=== PATIENT | female | born 1960 | race African-American/Black ===

== ENCOUNTER → 2016-08-25 | Outpatient (CLI) | payer OTHER ==
[2016-08-25 18:05] LABS: ALANINE AMINOTRANSFERASE 39 U/L (9-52); ALBUMIN 4.2 g/dL (3.5-5.0); ALKALINE PHOSPHATASE 86 U/L (38-126); ANION GAP 10 (5-19); ASPARTATE AMINO TRANSFERASE 27 U/L (14-36); BILIRUBIN,TOTAL 0.5 mg/dL (0.2-1.3); BLOOD UREA NITROGEN 11 mg/dL (7-20); CALCIUM 10.6 mg/dL (8.4-10.2); CARBON DIOXIDE 28 mmol/L (22-30); CHLORIDE 103 mmol/L (98-107); CHOLESTEROL 114.66 mg/dL (0-200); CREATININE RESULT 0.58 mg/dL (0.52-1.25); Direct HDL 36 mg/dL (>40); GLUCOSE 90 mg/dL (75-110); POTASSIUM 4.5 mmol/L (3.6-5.0); SODIUM 141.4 mmol/L (137-145); TOTAL PROTEIN 6.5 g/dL (6.3-8.2); TRIGLYCERIDES 114 mg/dL (<150)
[2016-08-25 18:16] LABS: DIRECT LDL 54 mg/dL (<100)
== END ==
LOC: OD 16:14
PROVIDERS: ATTEND Internal Medicine Cardiovascular Disease
DX: Z79.899 Other long term (current) drug therapy (principal)
CPT/HCPCS: 36415; 80048; 80061; 80076; 82306; 83036; 84443

== ENCOUNTER → 2017-02-21 | Outpatient (CLI) | payer OTHER ==
[2017-02-21 18:43] LABS: HEMATOCRIT 37.9 % (36.0-47.0); HEMOGLOBIN 12.6 g/dL (12.0-15.5); HGB HCT DIFFERENCE -0.1; MEAN CORPUSCULAR HEMOGLOBIN 29.8 pg (27.0-33.4); MEAN CORPUSCULAR HGB CONC 33.4 g/dL (32.0-36.0); MEAN CORPUSCULAR VOLUME 89 fl (80-97); RED BLOOD COUNT 4.25 10^6/uL (3.72-5.28); RED CELL DISTRIBUTION WIDTH 13.6 % (11.5-14.0); WHITE BLOOD COUNT 5.7 10^3/uL (4.0-10.5)
[2017-02-21 18:51] LABS: PARTIAL THROMBOPLASTIN TIME 28.1 SEC (23.5-35.8); PROTHROMBIN TIME 12.9 SEC (11.4-15.4)
[2017-02-21 18:59] LABS: ALANINE AMINOTRANSFERASE 36 U/L (9-52); ALBUMIN 4.6 g/dL (3.5-5.0); ALKALINE PHOSPHATASE 112 U/L (38-126); ANION GAP 11 (5-19); ASPARTATE AMINO TRANSFERASE 30 U/L (14-36); BILIRUBIN,DIRECT 0.3 mg/dL (0.0-0.4); BILIRUBIN,TOTAL 0.4 mg/dL (0.2-1.3); BLOOD UREA NITROGEN 15 mg/dL (7-20); CALCIUM 11.1 mg/dL (8.4-10.2); CARBON DIOXIDE 31 mmol/L (22-30); CHLORIDE 101 mmol/L (98-107); CHOLESTEROL 103.35 mg/dL (0-200); Direct HDL 36 mg/dL (>40); GLUCOSE 86 mg/dL (75-110); POTASSIUM 5.1 mmol/L (3.6-5.0); SODIUM 143.3 mmol/L (137-145); TOTAL PROTEIN 6.6 g/dL (6.3-8.2); TRIGLYCERIDES 67 mg/dL (<150)
[2017-02-21 19:10] LABS: DIRECT LDL 53 mg/dL (<100)
== END ==
LOC: OD 16:40
PROVIDERS: ATTEND Internal Medicine Cardiovascular Disease
DX: E55.9 Vitamin D deficiency, unspecified (principal); R07.9 Chest pain, unspecified; Z79.01 Long term (current) use of anticoagulants; Z01.810 Encounter for preprocedural cardiovascular examination
CPT/HCPCS: 36415; 80048; 80061; 80076; 82306; 85027; 85610; 85730

== ENCOUNTER → 2017-04-17 | Outpatient (CLI) | payer OTHER | LOC: OD 11:31 | PROVIDERS: ATTEND Internal Medicine Cardiovascular Disease | DX: R07.9 Chest pain, unspecified (principal); Z53.8 Procedure and treatment not carried out for other reasons ==

== ENCOUNTER 2017-07-09 15:41 | Emergency (ER) | payer OTHER ==
[2017-07-09 15:50] VITALS: BP 117/61
--- NOTE | 2017-07-09 16:13 | ER Document Report ---
ED Medical Screen (RME) - General Chief Complaint: Arm Injury Stated Complaint: FALL/LEFT ARM PAIN Time Seen by Provider: 07/09/17 16:07 TRAVEL OUTSIDE OF THE [place] IN LAST 30 DAYS: No - HPI Notes: 07/09/17 16:07 Patient is a 57-year-old female who presents ED complaining of left arm pain status post injury yesterday. Patient states that she was walking on her porch when she fell and landed her elbow inside of the pot she was carrying. Patient states that she has pain to her lower arm, forearm, and wrist. Patient states that she does have a bruise to her lower arm. 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 She has no numbness or tingling associated. She did is not on any blood thinners. She denies any drug allergies. Patient states that she did hit her head off the ground, but denies any loss of consciousness nausea/vomiting. Patient states that her arm caught most of her fall and her body just followed including her head. Patient states that she currently has no headache and no other concerns or complaints aside from her arm. She is eating and drinking without difficulties. She is urinating normally and having normal bowel movements. Denies any headache, fever, LOC, neck pain, changes in vision/speech/mentation/hearing, URI, sore throat, chest pain, palpitations, syncope, cough, shortness of breath, wheeze, dyspnea, abdominal pain, nausea/vomiting/diarrhea, urinary retention, dysuria, hematuria , loss of control of bowel or bladder, numbness/tingling, saddle anesthesia, muscle paralysis/weakness, or rash. I have treated and performed a rapid initial assessment of this patient. A comprehensive ED assessment and evaluation of the patient, analysis of test results and completion of medical decision making process will be conducted by additional ED providers. - Related Data Allergies/Adverse Reactions: No Known Allergies Allergy (Unverified 07/09/17 15:42) Past Medical History - Past Medical History Cardiac Medical History: Reports: Hx Hypertension - SINCE 5 YRS GI Medical History: Reports: Hx Gastroesophageal Reflux Disease - SINCE 4 YRS Past Surgical History: Reports: Hx Abdominal Surgery - GALLBLADDER, Hx Hysterectomy, Hx Mastectomy. Denies: Hx Adenoidectomy Physical Exam - Vital signs Vitals: Temp Pulse Resp BP Pulse Ox 98.9 F 70 16 117/61 98 07/09/17 15:48 07/09/17 15:48 07/09/17 15:48 07/09/17 15:48 07/09/17 15:48 - Notes Notes: PHYSICAL EXAMINATION: GENERAL: Well-appearing, well-nourished and in no acute distress. A&Ox4. Answers questions appropriately. HEAD: Atraumatic, normocephalic. Non-tender. No lopez sign EYES: Pupils equal round and reactive to light, extraocular movements intact, sclera anicteric, conjunctiva are normal. No raccoon eyes/entrapment. No nystagmus. ENT: Nares patent and without discharge. oropharynx clear without exudates. No tonsilar hypertrophy or erythema. Moist mucous membranes. NECK: Normal range of motion, supple without lymphadenopathy. No rigidity. No midline tenderness. Spurling negative. NEXUS negative. LUNGS: Breath sounds clear to auscultation bilaterally and equal. No wheezes rales or rhonchi. HEART: Regular rate and rhythm without murmurs, rubs, gallops. Musculoskeletal: Ext b/l: FROM to passive/active. Strength 5+/5. No deficits noted. + ecchymosis to the distal posterior left humerus. + tenderness to palp of the distal humerus, mid forearm, and wrist. No hand tenderness. N/V intact distal. Extremities: Peripheral pulses 2+. Capillary refill less than 2 seconds. NEUROLOGICAL: NIH 0. GCS 15. MMSE intact. Cranial nerves grossly intact. Normal speech, normal gait. Normal sensory, motor exams. Reflexes 2+ b/l. MARÍA' s negative. Pronator drift negative. Heel/elam, finger/nose wnl. PSYCH: Normal mood, normal affect. SKIN: Warm, Dry, normal turgor, no rashes or lesions noted. Course - Vital Signs Vital signs: Temp Pulse Resp BP Pulse Ox 98.9 F 70 16 117/61 98 07/09/17 15:48 07/09/17 15:48 07/09/17 15:48 07/09/17 15:48 07/09/17 15:48
--- NOTE | 2017-07-09 16:40 | RADIOLOGY REPORT (SQ) ---
EXAM DESCRIPTION: WRIST LEFT 3 VIEWS COMPLETED DATE/TIME: 07/09/2017 4:32 pm REASON FOR STUDY: left elbow, forearm, wrist pain COMPARISON: None. NUMBER OF VIEWS: Three views. TECHNIQUE: AP, lateral, and oblique radiographic images acquired of the left wrist. LIMITATIONS: None. FINDINGS: MINERALIZATION: Normal. BONES: No acute fracture or dislocation. No worrisome bone lesions. Normal alignment. No significant osteophytes. JOINTS: There are degenerative changes in the 1st carpal metacarpal joint. There are degenerative ch anges in the radiocarpal joint. SOFT TISSUES: No swelling. No calcifications. OTHER: No other significant finding. IMPRESSION: Degenerative changes. No acute findings. TECHNICAL DOCUMENTATION: JOB ID: [id number] [employer]- All Rights Reserved
--- NOTE | 2017-07-09 16:42 | RADIOLOGY REPORT (SQ) ---
EXAM DESCRIPTION: ELBOW LEFT OVER 2 VIEWS COMPLETED DATE/TIME: 07/09/2017 4:32 pm REASON FOR STUDY: left elbow, forearm, wrist pain COMPARISON: None. NUMBER OF VIEWS: Four views. TECHNIQUE: AP, lateral, and both oblique radiographic images acquired of the left elbow. LIMITATIONS: None. FINDINGS: MINERALIZATION: Normal. BONES: There is a mildly displaced fracture of the radial head. JOINT: There is a small joint effusion. SOFT TISSUES: No soft tissue swelling. No foreign body. OTHER: No other significant finding. IMPRESSION: Radial head fracture with associated joint effusion. TECHNICAL DOCUMENTATION: JOB ID: [id number] [employer]- All Rights Reserved
--- NOTE | 2017-07-09 17:20 | ER Document Report ---
ED Extremity Problem, Upper - General Chief Complaint: Arm Injury Stated Complaint: FALL/LEFT ARM PAIN Time Seen by Provider: 07/09/17 16:07 Mode of Arrival: Ambulatory Information source: Patient TRAVEL OUTSIDE OF THE [place] IN LAST 30 DAYS: No - HPI Patient complains to provider of: Injury, Left, Arm Onset: Yesterday Recent injury: Yes Where: Home, Outdoors Quality of pain: Achy Severity of pain: Moderate Notes: Patient arrives with complaints of left arm pain after falling yesterday. She states that she was observed her deck carrying a cooking pot when she tripped and fell and her left elbow went into the pocket. She now complains of left elbow and left wrist pain. She states that she hit her head, but denies any loss of consciousness. She denies any headache, blurred vision, numbness tingling or weakness. She is not on blood thinning medications. She denies any midline neck or back pain, no chest pain or shortness of breath, no abdominal pain. She denies any fevers. No redness. She denies any other injuries or complaints at this time. She does complain of some mild generalized stiffness. - Related Data Allergies/Adverse Reactions: No Known Allergies Allergy (Unverified 07/09/17 15:42) Past Medical History - Social History Smoking Status: Unknown if Ever Smoked Family History: Reviewed & Not Pertinent - Past Medical History Cardiac Medical History: Reports: Hx Hypertension - SINCE 5 YRS GI Medical History: Reports: Hx Gastroesophageal Reflux Disease - SINCE 4 YRS Past Surgical History: Reports: Hx Abdominal Surgery - GALLBLADDER, Hx Hysterectomy, Hx Mastectomy. Denies: Hx Adenoidectomy Review of Systems - Review of Systems -: Yes All other systems reviewed and negative Physical Exam - Vital signs Vitals: Temp Pulse Resp BP Pulse Ox 98.9 F 70 16 117/61 98 07/09/17 15:48 07/09/17 15:48 07/09/17 15:48 07/09/17 15:48 07/09/17 15:48 - Notes Notes: GENERAL: alert, cooperative, nontoxic, no distress. HEAD: normocephalic, atraumatic EYES: conjunctiva pink without discharge, no external redness or swelling. PERRL , EOM'S INTACT EARS: no external swelling, no external redness. No hemotympanum EM NOSE: atraumatic, no external swelling. No bleeding MOUTH/THROAT: mucous membranes moist and pink, posterior pharynx without erythema, swelling, exudate. No trismus or drooling. NECK: soft, supple, full range of motion, no meningismus. No midline tenderness step-offs or crepitus to palpation of the cervical spine. CHEST: no distress, lungs clear and equal throughout. No wheezing, rales, rhonchi. CARDIAC: regular rate and rhythm, no murmur, normal capillary refill, normal pulses. No peripheral edema noted. BACK: full range of motion, no CVA tenderness. No midline tenderness step-offs or crepitus to palpation of the thoracic or lumbar spine. EXTREMITIES: Tenderness to palpation of the left elbow and distal radius. No snuffbox tenderness noted. No tenderness to palpation of the shoulder or the hand. Normal pulse and sensation is well cap refill distally. Limited range of motion of the elbow secondary to pain. Compartments are soft. No redness. Full range of motion of the wrist. NEURO: alert and oriented x 3, no focal deficits, full range of motion of all extremities. Cranial nerves II through XII are grossly intact. Normal sensation bilaterally. Normal strength bilaterally. PYSCH: appropriate mood, affect. Patient is cooperative. SKIN: pink, warm, dry, no rash. Course - Re-evaluation Re-evalutation: 07/09/17 17:17 The patient is nontoxic appearing with stable vitals. The patient fell and injured her left arm yesterday. She states that she hit her head, no loss of consciousness, no blood thinners, no headache now, normal neuro exam at this time. She does not require any head CT at this time. X-rays of the left elbow and wrist show a radial head fracture. She is neurovascularly intact with no signs of compartment syndrome. No signs of infection. Patient will be placed in a posterior splint and sling with instructions to follow-up with her orthopedist at the next available appointment. She already takes Percocet on a daily basis for chronic pain and she was instructed to continue taking this as needed. She is instructed to rest, ice, elevate the arm as well. She was also instructed to follow-up sooner if she develops any increasing pain, fever, numbness, tingling, weakness, any further concerns. The patient's emergency department workup and current diagnosis were explained to the patient and or family. Follow-up instructions were provided. Medications if prescribed were discussed. Instructions for when to return to the emergency department including specific worrisome symptoms were discussed with the patient and/or family. - Vital Signs Vital signs: Temp Pulse Resp BP Pulse Ox 98.9 F 70 16 117/61 98 07/09/17 15:48 07/09/17 15:48 07/09/17 15:48 07/09/17 15:48 07/09/17 15:48 - Diagnostic Test Radiology reviewed: Image reviewed, Reports reviewed - Wrist x-ray with no acute abnormality. Left elbow with radial head fracture. Procedures - Immobilization Left arm Pre-Proc Neuro Vasc Exam: Normal Immobilizer type: Long arm posterior, Sling Performed by: PCT Post-Proc Neuro Vasc Exam: Normal Alignment checked and good: Yes Discharge - Discharge Clinical Impression: Left radial head fracture Qualifiers: Encounter type: initial encounter Fracture type: closed Fracture alignment: nondisplaced Qualified Code(s): S52.125A - Nondisplaced fracture of head of left radius, initial encounter for closed fracture Condition: Stable Disposition: HOME, SELF-CARE Instructions: Radial Head Fracture ([facility]), Splint Precautions ([facility]) Additional Instructions: Wear splint and use sling until you follow-up with your orthopedist. Call and make an appointment with your orthopedist at the next available appointment. Rest, ice, elevate your arm. Take your normal pain medication as needed for pain. Follow-up sooner for increased pain, fever, numbness, tingling, weakness , any further concerns. Forms: Smoking Cessation Education Referrals: CLAUS GRIFFIN MD [Primary Care Provider] - Follow up as needed TRACE AGUILAR DO [ACTIVE STAFF] - Follow up as needed
== END 2017-07-09 18:00 | disposition home or self-care (01) ==
LOC: ER 15:41
DX: S52.125A Nondisplaced fracture of head of left radius, initial encounter for closed fracture (principal); W19.XXXA Unspecified fall, initial encounter; Y92.009 Unspecified place in unspecified non-institutional (private) residence as the place of occurrence of the external cause; M25.522 Pain in left elbow; M25.532 Pain in left wrist; I10 Essential (primary) hypertension; G89.29 Other chronic pain; Z79.891 Long term (current) use of opiate analgesic
CPT/HCPCS: 99283

== ENCOUNTER 2017-08-04 01:44 | Inpatient (IN) | payer OTHER ==
[2017-08-04] MEDS ORDERED: IPRATROPIUM/ALBUTEROL 0.5-2.5 MG/3 ML AMPUL NEB ONE ×2 (01:51→02:54)
[2017-08-04] MEDS ORDERED: PREDNISONE 20 MG TABLET PO ONE (01:51)
[2017-08-04] MEDS ORDERED: ACETAMINOPHEN 325 MG TABLET PO ONE (01:51)
[2017-08-04] MEDS: ALBUTEROL SULFATE 0.083% NEB 2.5 MG/3 ML AMPUL NEB SCH ×2 (01:56→01:58)
--- NOTE | 2017-08-04 02:55 | ER Document Report ---
ED General - General Chief Complaint: Cold Symptoms Stated Complaint: SICK Time Seen by Provider: 08/04/17 02:46 Notes: Patient is a 57-year-old female that comes emergency department for chief complaint of congestion, cough, fever, and worsening difficulty breathing since yesterday. She reports multiple sick contacts at home. She has not had the influenza vaccine. She does not smoke, she denies history of asthma or COPD. She denies chest pain, nausea or vomiting, abdominal pain. Past medical history of type 2 diabetes, hypertension, hyperlipidemia, and chronic back pain. TRAVEL OUTSIDE OF THE [place] IN LAST 30 DAYS: No - Related Data Allergies/Adverse Reactions: No Known Allergies Allergy (Unverified 07/09/17 15:42) Past Medical History - General Information source: Patient - Social History Smoking Status: Never Smoker Frequency of alcohol use: None Drug Abuse: None Lives with: Family Family History: Reviewed & Not Pertinent Patient has suicidal ideation: No Patient has homicidal ideation: No - Past Medical History Cardiac Medical History: Reports: Hx Hypertension - SINCE 5 YRS Renal/ Medical History: Denies: Hx Peritoneal Dialysis GI Medical History: Reports: Hx Gastroesophageal Reflux Disease - SINCE 4 YRS Past Surgical History: Reports: Hx Abdominal Surgery - GALLBLADDER, Hx Hysterectomy, Hx Mastectomy. Denies: Hx Adenoidectomy Review of Systems - Review of Systems Constitutional: See HPI EENT: No symptoms reported Cardiovascular: See HPI Respiratory: See HPI Gastrointestinal: No symptoms reported Genitourinary: No symptoms reported Female Genitourinary: No symptoms reported Musculoskeletal: No symptoms reported Skin: No symptoms reported Hematologic/Lymphatic: No symptoms reported Neurological/Psychological: No symptoms reported Physical Exam - Vital signs Vitals: Temp Pulse Resp BP Pulse Ox 101.9 F H 77 18 119/63 91 L 08/04/17 01:48 08/04/17 01:48 08/04/17 01:48 08/04/17 01:48 08/04/17 01:48 Interpretation: Normal - General General appearance: Alert In distress: Mild - HEENT Head: Normocephalic, Atraumatic Eyes: Normal Pupils: PERRL - Respiratory Respiratory status: Respiratory distress, Labored, Tachypnea Chest status: Nontender Breath sounds: Decreased air movement, Rhonchi, Wheezing Chest palpation: Normal - Cardiovascular Rhythm: Regular. No: Tachycardia Heart sounds: Normal auscultation, S1 appreciated, S2 appreciated Murmur: No - Abdominal Inspection: Normal Distension: No distension Bowel sounds: Normal Tenderness: Nontender. No: Tender, Guarding Organomegaly: No organomegaly - Back Back: Normal, Nontender. No: Tender - Extremities General upper extremity: Normal inspection, Nontender, Normal color, Normal ROM , Normal temperature General lower extremity: Normal inspection, Nontender, Normal color, Normal ROM , Normal temperature, Normal weight bearing. No: Edema - Neurological Neuro grossly intact: Yes Cognition: Normal Orientation: AAOx4 Austin Coma Scale Eye Opening: Spontaneous Austin Coma Scale Verbal: Oriented Austin Coma Scale Motor: Obeys Commands Negin Coma Scale Total: 15 Speech: Normal Motor strength normal: LUE, RUE, LLE, RLE Sensory: Normal - Psychological Associated symptoms: Normal affect, Normal mood - Skin Skin Temperature: Hot Skin Moisture: Dry Skin Color: Flushed Course - Re-evaluation Re-evalutation: Patient is in mild respiratory distress, has tachypnea, wheezing, loud rhonchi throughout all lung palmer. She is hypoxic on room air into the 80s, placed on 4 L nasal cannula, given multiple treatments, has received prednisone but also given Solu-Medrol, giving magnesium, duo nebs. Patient will be reassessed closely. Febrile treatment given. Patient difficult to obtain good access, I did use ultrasound to guide long IV 20-gauge placement in the right AC. Patient asking for medication for cough, she was given [place] for this, this did help. After multiple treatments, medications patient's wheezing resolved but she still has loud rhonchi and hypoxia. On 4 L nasal cannula she is at 93%, this quickly drops without oxygen. CBC unremarkable, chemistry unremarkable generally, cardiac enzymes negative, influenza is negative. Given Rocephin, and azithromycin. Patient's clinical presentation is consistent with pneumonia. Possibly viral pneumonia. Venous blood gas fortunately is normal. Patient with no smoking, asthma, COPD history. 08/04/17 07:[address] Mccarty, internal medicine, patient will be admitted to telemetry full admission. Recommends CAT scan of the chest. I discussed with patient, after discussion we will perform full CTA of the chest to fully evaluate hypoxia. - Vital Signs Vital signs: Temp Pulse Resp BP Pulse Ox 99.4 F 77 16 135/72 H 92 08/04/17 05:00 08/04/17 01:48 08/04/17 06:37 08/04/17 06:37 08/04/17 06:37 - Laboratory Result Diagrams: 08/04/17 03:26 08/04/17 03:26 Laboratory results interpreted by me: 08/04/17 08/04/17 03:26 03:26 RDW 14.6 H Sodium 135.0 L Chloride 96 L Glucose 186 H Direct Bilirubin 0.5 H AST 67 H Creatine Kinase 139 H Discharge - Discharge Clinical Impression: Shortness of breath, Hypoxia Fever Qualifiers: Fever type: unspecified Qualified Code(s): R50.9 - Fever, unspecified Condition: Fair Disposition: ADMITTED INPATIENT Admitting Provider: Hospitalist Unit Admitted: Telemetry Referrals: CLAUS GRIFFIN MD [Primary Care Provider] - Follow up as needed
[2017-08-04 03:43] LABS: ABSOLUTE LYMPHOCYTES (AUTO) 0.8 10^3/uL (0.5-4.7); ABSOLUTE MONOCYTES (AUTO) 0.5 10^3/uL (0.1-1.4); ABSOLUTE NEUT (AUTO) 4.1 10^3/uL (1.7-8.2); BASOPHILS % (AUTO) 0.9 % (0-2); EOSINOPHILS % (AUTO) 0.1 % (0-6); HEMATOCRIT 39.5 % (36.0-47.0); LYMPHOCYTES % (AUTO) 15.2 % (13-45); MEAN CORPUSCULAR HEMOGLOBIN 28.3 pg (27.0-33.4); MEAN CORPUSCULAR HGB CONC 32.9 g/dL (32.0-36.0); MEAN CORPUSCULAR VOLUME 86 fl (80-97); MONOCYTES % (AUTO) 8.8 % (3-13); PLATELET COUNT 179 10^3/uL (150-450); RED BLOOD COUNT 4.59 10^6/uL (3.72-5.28); RED CELL DISTRIBUTION WIDTH 14.6 % (11.5-14.0); TOTAL CELLS COUNTED % (AUTO) 100 %; WHITE BLOOD COUNT 5.4 10^3/uL (4.0-10.5)
--- NOTE | 2017-08-04 03:45 | RADIOLOGY REPORT (SQ) ---
EXAM DESCRIPTION: CHEST SINGLE VIEW CLINICAL HISTORY: 57 years Female, fever, cough, hypoxia COMPARISON: None. NUMBER OF VIEWS/TECHNIQUE: 1/AP LIMITATIONS: None. FINDINGS: Moderate lung volume, small atelectasis or scar of the left lower lung field, normal cardiac silhouette, and and moderate bilateral shoulder osteoarthritis including large right inferior glenohumeral osteophytes IMPRESSION: No acute cardiopulmonary findings.
[2017-08-04 03:55] LABS: ALANINE AMINOTRANSFERASE 47 U/L (9-52); ALBUMIN 4.6 g/dL (3.5-5.0); ALKALINE PHOSPHATASE 121 U/L (38-126); ANION GAP 13 (5-19); ASPARTATE AMINO TRANSFERASE 67 U/L (14-36); BILIRUBIN,DIRECT 0.5 mg/dL (0.0-0.4); BILIRUBIN,TOTAL 0.7 mg/dL (0.2-1.3); BLOOD UREA NITROGEN 17 mg/dL (7-20); CALCIUM 9.1 mg/dL (8.4-10.2); CARBON DIOXIDE 26 mmol/L (22-30); CHLORIDE 96 mmol/L (98-107); CREATINE KINASE 139 U/L (30-135); GLUCOSE 186 mg/dL (75-110); POTASSIUM 4.2 mmol/L (3.6-5.0); TOTAL PROTEIN 7.4 g/dL (6.3-8.2)
[2017-08-04] MEDS ORDERED: HYDROCODONE/ACETAMINOPHEN 5-325 MG TABLET PO ONE ×2 (04:02→04:05)
[2017-08-04] MEDS ORDERED: ONDANSETRON HCL INJ/PF 4 MG/2 ML SDV IV ONE (04:02)
[2017-08-04] MEDS ORDERED: MAGNESIUM SULFATE/D5W 1 GM/100 ML RTUPB IV PRN (04:05)
[2017-08-04] MEDS ORDERED: METHYLPREDNISOLONE INJ 125 MG/2 ML SDV IV ONE (04:05)
[2017-08-04 04:15] LABS: A TYPE INFLUENZA AG NEGATIVE (NEGATIVE); B INFLUENZA AG NEGATIVE (NEGATIVE)
[2017-08-04 04:29] LABS: VENOUS BLOOD HCO3 25.4 mmol/L (20-32); VENOUS BLOOD PCO2 39.9 mmHg (35-63); VENOUS BLOOD PH 7.42 (7.30-7.42)
[2017-08-04] MEDS ORDERED: CEFTRIAXONE 1 GM/D5W RTU 1 GM/50 ML RTUPB IV ONE (04:50)
[2017-08-04] MEDS ORDERED: AZITHROMYCIN INJ 500 MG VIAL IV ONE (04:50)
[2017-08-04] MEDS ORDERED: CEFTRIAXONE INJ 1000 MG VIAL ONE (05:20)
[2017-08-04] MEDS ORDERED: MAGNESIUM SULFATE/D5W 1 GM/100 ML RTUPB IV ONE (05:31)
[2017-08-04] MEDS ORDERED: IPRATROPIUM/ALBUTEROL 0.5-2.5 MG/3 ML AMPUL NEB PRN (07:52)
[2017-08-04] MEDS: IPRATROPIUM/ALBUTEROL 0.5-2.5 MG/3 ML AMPUL NEB SCH ×3 (08:36→23:45)
--- NOTE | 2017-08-04 09:43 | RADIOLOGY REPORT (SQ) ---
EXAM DESCRIPTION: CTA CHEST COMPLETED DATE/TIME: 08/04/2017 9:31 am REASON FOR STUDY: hypoxia COMPARISON: 07/28/2009 TECHNIQUE: CT scan of the chest performed using helical scanning technique with dynamic intravenous contrast injection. Images reviewed with lung, soft tissue and bone windows. Reconstructed coronal and sagittal MPR images reviewed. Additional 3 dimensional post-processing performed to develop Maximal Intensity Projection images (DC P). All images stored on PACS. All CT scanners at this facility use dose modulation, iterative reconstruction, and/or weight based d osing when appropriate to reduce radiation dose to as low as reasonably achievable (ALARA). [facility]: Dose Right [facility]: CareDose [facility]: Dose Right [facility]: Teradose 4D [facility]: Secured Mail CONTRAST TYPE AND DOSE: contrast/concentration: Isovue 370.00 mg/ml; Total Contrast Delivered: 78.0 ml; Total Saline Delivered: 110.0 ml Contrast bolus adequate for pulmonary arteries and aorta. RENAL FUNCTION: GFR > 60. RADIATION DOSE: CT Rad equipment meets quality standard of care and radiation dose reduction techniq ues were employed. CTDIvol: 31.8 - 33.1 mGy. DLP: 1040 mGy-cm. . LIMITATIONS: None. FINDINGS: LUNGS AND PLEURA: Bilateral lower lobe consolidation compatible with pneumonia. Lungs oth erwise clear. No significant pleural effusion or pneumothorax. AORTA AND GREAT VESSELS: No aneurysm. Contrast bolus not optimized for the aorta. HEART: No pericardial effusion. No significant coronary artery calcifications. PULMONARY ARTERIES: No emboli visualized in the main pulmonary arteries or the segmental branches. HILAR AND MEDIASTINAL STRUCTURES: No identified masses or abnormal nodes. HARDWARE: None in the chest. UPPER ABDOMEN: No significant findings. Limited exam. THYROID AND OTHER SOFT TISSUES: No masses. No adenopathy. BONES: No acute or significant finding. 3D MIPS: Confirm above findings. OTHER: No other significant finding. IMPRESSION: BILATERAL LOWER LOBE PNEUMONIA. RECOMMEND FOLLOWUP RADIOGRAPHS 4 TO 6 WEEKS TO ENSURE R ESOLUTION. OTHERWISE UNREMARKABLE CTA CHEST WITHOUT PULMONARY EMBOLI. COMMENT: Quality ID # [id number]: Final reports with documentation of one or more dose reduction techniques (e.g., Automated exposure control, adjustment of the mA and/or kV according to patient size, use of iterative reconstruction technique) TECHNICAL DOCUMENTATION: JOB ID: [id number]- All Rights Reserved
[2017-08-04] MEDS ORDERED: CEFTRIAXONE 1 GM/D5W RTU 50 ML IV SCH (10:00)
--- NOTE | 2017-08-04 10:28 | PDOC H&P ---
History of Present Illness Admission Date/PCP: 08/04/17 08:30 CLAUS GRIFFIN MD Patient complains of: Cough, chest congestion and wheezing History of Present Illness: MARINO SAMAYOA is a 57 year old [place] female that comes to the emergency department for chief complaint of congestion, cough, fever, and worsening difficulty breathing since yesterday. She reports multiple sick contacts at home. She has not had the influenza vaccine. She does not smoke, she denies history of asthma or COPD. She has had fevers up to 101.5 at home. She has been taking Tylenol and nrmw-sid-hshperd Mucinex without improvement of her symptoms. She began wheezing yesterday afternoon and it became more progressive as the day went on. Her dyspnea is what prompted her trip to the emergency room. She denies chest pain, nausea or vomiting, abdominal pain. Past medical history of type 2 diabetes, hypertension, hyperlipidemia, and chronic back pain. Home medications reconciliation list is pending nursing and pharmacy verification. Past Medical History Cardiac Medical History: Reports: Hypertension - SINCE 5 YRS Pulmonary Medical History: Reports: None EENT Medical History: Reports: None Neurological Medical History: Reports: None Endocrine Medical History: Reports: None Renal/ Medical History: Reports: None Malignancy Medical History: Reports: None GI Medical History: Reports: Gastroesophageal Reflux Disease - SINCE 4 YRS Musculoskeltal Medical History: Reports: None Skin Medical History: Reports: None Psychiatric Medical History: Reports: None Traumatic Medical History: Reports: None Hematology: Reports: None Infectious Medical History: Reports: None Past Surgical History Past Surgical History: Reports: Hysterectomy, Mastectomy Denies: Adenoidectomy Social History Information Source: Patient Lives with: Family Smoking Status: Never Smoker Frequency of Alcohol Use: Rare Hx Recreational Drug Use: No Drugs: None - Advance Directive Surrogate healthcare decision maker:: is care surrogate decision maker should she become incapacitated Family History Family History: Hypertension, Malignancy Parental Family History Reviewed: Yes Children Family History Reviewed: Yes Sibling(s) Family History Reviewed.: Yes Medication/Allergy Allergies/Adverse Reactions: No Known Allergies Allergy (Unverified 07/09/17 15:42) Review of Systems Constitutional: PRESENT: chills, fatigue, fever(s) Eyes: ABSENT: visual disturbances Ears: ABSENT: hearing changes Nose, Mouth, and Throat: PRESENT: sore throat Cardiovascular: ABSENT: chest pain, dyspnea on exertion, edema, orthropnea, palpitations Respiratory: PRESENT: cough, dyspnea, sputum, other - Seen Gastrointestinal: ABSENT: abdominal pain, constipation, diarrhea, hematemesis, hematochezia, nausea, vomiting Genitourinary: ABSENT: dysuria, hematuria Musculoskeletal: ABSENT: joint swelling Integumentary: ABSENT: rash, wounds Neurological: ABSENT: abnormal gait, abnormal speech, confusion, dizziness, focal weakness, syncope Psychiatric: ABSENT: anxiety, depression, homidical ideation, suicidal ideation Endocrine: ABSENT: cold intolerance, heat intolerance, polydipsia, polyuria Hematologic/Lymphatic: ABSENT: easy bleeding, easy bruising Physical Exam Vital Signs: Temp Pulse Resp BP Pulse Ox 99.4 F 77 16 135/72 H 92 08/04/17 05:00 08/04/17 01:48 08/04/17 06:37 08/04/17 06:37 08/04/17 06:37 General appearance: PRESENT: no acute distress, obese, well-developed, well- nourished Head exam: PRESENT: atraumatic, normocephalic Eye exam: PRESENT: conjunctiva pink, EOMI, PERRLA. ABSENT: scleral icterus Ear exam: PRESENT: normal external ear exam Mouth exam: PRESENT: moist, tongue midline Neck exam: ABSENT: carotid bruit, JVD, lymphadenopathy, thyromegaly Respiratory exam: PRESENT: rhonchi, symmetrical, unlabored, wheezes Cardiovascular exam: PRESENT: RRR. ABSENT: diastolic murmur, rubs, systolic murmur Pulses: PRESENT: normal dorsalis pedis pul Vascular exam: PRESENT: normal capillary refill GI/Abdominal exam: PRESENT: normal bowel sounds, soft. ABSENT: distended, guarding, mass, organolmegaly, rebound, tenderness Rectal exam: PRESENT: deferred Extremities exam: PRESENT: full ROM. ABSENT: calf tenderness, clubbing, pedal edema Neurological exam: PRESENT: alert, awake, oriented to person, oriented to place , oriented to time, oriented to situation, CN II-XII grossly intact. ABSENT: motor sensory deficit Psychiatric exam: PRESENT: appropriate affect, normal mood. ABSENT: homicidal ideation, suicidal ideation Skin exam: PRESENT: dry, intact, warm. ABSENT: cyanosis, rash Results Impressions: Chest X-Ray 08/04/17 02:53 IMPRESSION: No acute cardiopulmonary findings. Chest/Abdomen CTA 08/04/17 07:38 IMPRESSION: BILATERAL LOWER LOBE PNEUMONIA. RECOMMEND FOLLOWUP RADIOGRAPHS 4 TO 6 WEEKS TO ENSURE RESOLUTION. OTHERWISE UNREMARKABLE CTA CHEST WITHOUT PULMONARY EMBOLI. Assessment & Plan - Diagnosis (1) Acute respiratory failure with hypoxemia Is this a current diagnosis for this admission?: Yes Plan: Supplmental oxygen keeping SPO2 greater than 90 CTA shows bilateral lower lobe pneumonia. Continue IV antibiotics pending cultures. Nebulizers and steroids (2) Community acquired pneumonia Qualifiers: Lung location: lower lobe of lung Is this a current diagnosis for this admission?: Yes Plan: Continue IV antibiotics, nebulizers and steroids. Get sputum culture for pathogen identification (3) Essential hypertension Is this a current diagnosis for this admission?: Yes Plan: Continue current medications she is normotensive (4) Diabetes mellitus type 2 in obese Is this a current diagnosis for this admission?: Yes Plan: Sliding scale insulin coverage for now until her home meds are verified. - Time Time Spent: 50 to 70 Minutes Critical Time spent with patient: 25-34 minutes Medications reviewed and adjusted accordingly: Yes
[2017-08-04] MEDS: ENOXAPARIN SODIUM INJ 40 MG/0.4 ML DISP.SYRIN SUBCUT SCH (10:32)
[2017-08-04 13:22] LABS: APPEARANCE,URINE CLEAR; BILIRUBIN,URINE NEGATIVE (NEGATIVE); COLOR,URINE STRAW; GLUCOSE, URINE >=500 mg/dL (NEGATIVE); KETONES,URINE TRACE mg/dL (NEGATIVE); LEUKOCYTE ESTERASE,URINE NEGATIVE (NEGATIVE); NITRITE,URINE NEGATIVE (NEGATIVE); PROTEIN,URINE NEGATIVE (NEGATIVE); URINE SPECIFIC GRAVITY 1.035; UROBILINOGEN,URINE NEGATIVE mg/dL (<2.0)
[2017-08-04] MEDS: ACETAMINOPHEN 325 MG TABLET PO PRN (14:36)
[2017-08-04] MEDS ORDERED: CYCLOBENZAPRINE HCL 10 MG TABLET PO PRN (15:05)
[2017-08-04] MEDS ORDERED: OXYCODONE HCL IR 5 MG TABLET PO PRN (15:06)
[2017-08-04] MEDS ORDERED: GLUCAGON,HUMAN RECOMB 1 MG INJ IM PRN (15:07)
[2017-08-04] MEDS ORDERED: DEXTROSE 40% GEL 15 GM TUBE PO PRN ×2 (15:07)
[2017-08-04] MEDS ORDERED: DEXTROSE 50%-WATER 25 GM/50 ML DISP.SYRIN IV PRN ×2 (15:07)
[2017-08-04] MEDS ORDERED: GUAIFENESIN/CODEINE PHOS 100-10 MG/ 5 ML UDC PO PRN (15:10)
[2017-08-04] MEDS ORDERED: NORMAL SALINE 1000 ML 1,000 ML IV PRN (17:22)
[2017-08-04] MEDS: GABAPENTIN 300 MG CAPSULE PO SCH (19:15)
[2017-08-04] MEDS ORDERED: GUAIFENESIN 600 MG TABLET.SA PO SCH (22:00)
[2017-08-04] MEDS: DULOXETINE HCL 30 MG CAPSULE.DR PO SCH (23:43)
[2017-08-04] MEDS: GUAIFENESIN 600 MG TABLET.SA PO SCH (23:43)
[2017-08-04] MEDS: METOPROLOL TARTRATE 50 MG TABLET PO SCH (23:44)
[2017-08-04] MEDS: METHYLPREDNISOLONE INJ 40 MG/1 ML SDV IV SCH (23:45)
[2017-08-04] MEDS: METFORMIN HCL 500 MG TABLET PO SCH (23:46)
[2017-08-05] MEDS: ACETAMINOPHEN 325 MG TABLET PO PRN (02:57)
[2017-08-05] MEDS: GABAPENTIN 300 MG CAPSULE PO SCH ×4 (03:45→17:05)
[2017-08-05] MEDS ORDERED: INFLUENZA ADLT QUAD (36MOS+) 2017-18 VAC 0.5 ML SYR IM PRN (03:59)
[2017-08-05] MEDS: CEFTRIAXONE SODIUM 1,000 MG in NORMAL SALINE 100 ML IV SCH (05:04)
[2017-08-05] MEDS: METHYLPREDNISOLONE INJ 40 MG/1 ML SDV IV SCH ×3 (05:08→22:34)
[2017-08-05] MEDS: IPRATROPIUM/ALBUTEROL 0.5-2.5 MG/3 ML AMPUL NEB SCH ×2 (07:50→16:30)
[2017-08-05] MEDS: INSULIN REG, HUMAN 100 UNIT/ML 3 ML VIAL (PYX) SUBCUT PRN ×4 (08:06→22:33)
[2017-08-05] MEDS: METFORMIN HCL 500 MG TABLET PO SCH ×2 (09:53→22:34)
[2017-08-05] MEDS: GUAIFENESIN 600 MG TABLET.SA PO SCH ×2 (09:54→22:34)
[2017-08-05] MEDS: METOPROLOL TARTRATE 50 MG TABLET PO SCH ×2 (09:56→22:34)
[2017-08-05] MEDS: CYANOCOBALAMIN (VITAMIN B-12) 1,000 MCG TABLET PO SCH (09:56)
[2017-08-05] MEDS ORDERED: ASPIRIN 81 MG TABLET, ENT COATED PO SCH (10:00)
[2017-08-05] MEDS ORDERED: VALSARTAN 40 MG TABLET PO SCH (10:00)
[2017-08-05] MEDS ORDERED: (PENDING PHARMACY ID) (Vitamin B Complex [Super B Complex] 1 CAP) PO SCH (10:00)
[2017-08-05] MEDS ORDERED: (PENDING PHARMACY ID) (Metformin Hcl [Metformin Hcl Er] 2,000 MG) PO SCH (10:00)
[2017-08-05] MEDS ORDERED: MULTIVIT-STRESS FORMULA/ZINC TABLET PO SCH (10:00)
[2017-08-05] MEDS ORDERED: CELECOXIB 200 MG CAPSULE PO SCH (10:00)
[2017-08-05] MEDS ORDERED: EZETIMIBE 10 MG TABLET PO SCH (10:00)
[2017-08-05] MEDS ORDERED: ATORVASTATIN CALCIUM 40 MG TABLET PO SCH (10:00)
[2017-08-05] MEDS: AZITHROMYCIN 500 MG in DEXTROSE 5%-WATER 250 ML IV SCH (10:01)
[2017-08-05] MEDS: ENOXAPARIN SODIUM INJ 40 MG/0.4 ML DISP.SYRIN SUBCUT SCH (10:04)
--- NOTE | 2017-08-05 17:39 | PDOC PROGRESS REPORT ---
Subjective Progress Note for:: 08/05/17 Subjective:: Patient is still extremely fatigued But her breathing is better She still somewhat hypoxemic and O2 sat is 91-94% on 2 L nasal cannula She has no pleuritic chest pain no fever no chills Reason For Visit: PNEUMONIA Physical Exam Vital Signs: Temp Pulse Resp BP Pulse Ox 98.8 F 76 18 108/63 97 08/05/17 16:00 08/05/17 16:30 08/05/17 16:30 08/05/17 16:00 08/05/17 16:30 Pulse Oximeter Continuous Start: 08/04/17 07: 52 Freq: RTQ4 Status: Active Document 08/05/17 16:30 TPO (Rec: 08/05/17 17:13 TPO [email or web address]) Pulse Oximetry Assessment Oxygen Saturation (92-100) 97 Oxygen Flow Rate (L/min) 1 Oxygen Delivery Method Nasal Cannula Fraction of Inspired Oxygen (FIO2) 24 Equipment Usage Equipment in Use Continuous SpO2 Machine # 13 Intake & Output 08/04/17 08/05/17 08/06/17 00:59 00:59 00:59 Output Total 1 Balance -1 Weight 89 kg General appearance: PRESENT: no acute distress, obese Head exam: PRESENT: atraumatic, normocephalic Eye exam: PRESENT: conjunctiva pink, EOMI, PERRLA. ABSENT: scleral icterus Neck exam: ABSENT: carotid bruit, JVD, lymphadenopathy, thyromegaly Respiratory exam: PRESENT: rhonchi, wheezes. ABSENT: accessory muscle use Cardiovascular exam: PRESENT: RRR. ABSENT: diastolic murmur, rubs, systolic murmur Pulses: PRESENT: normal dorsalis pedis pul GI/Abdominal exam: PRESENT: normal bowel sounds, soft. ABSENT: distended, guarding, mass, organolmegaly, rebound, tenderness Extremities exam: PRESENT: full ROM. ABSENT: calf tenderness, clubbing, pedal edema Musculoskeletal exam: ABSENT: ambulatory, deformity, dislocation, full ROM, normal inspection, tenderness, other Neurological exam: PRESENT: alert, awake, oriented to person, oriented to place , oriented to time, oriented to situation, CN II-XII grossly intact. ABSENT: motor sensory deficit Skin exam: PRESENT: dry, intact, warm. ABSENT: cyanosis, rash Results Impressions: Chest X-Ray 08/04/17 02:53 IMPRESSION: No acute cardiopulmonary findings. Chest/Abdomen CTA 08/04/17 07:38 IMPRESSION: BILATERAL LOWER LOBE PNEUMONIA. RECOMMEND FOLLOWUP RADIOGRAPHS 4 TO 6 WEEKS TO ENSURE RESOLUTION. OTHERWISE UNREMARKABLE CTA CHEST WITHOUT PULMONARY EMBOLI. Assessment & Plan - Diagnosis (1) Acute respiratory failure with hypoxemia Is this a current diagnosis for this admission?: Yes (2) Community acquired pneumonia Qualifiers: Lung location: lower lobe of lung Is this a current diagnosis for this admission?: Yes (3) Diabetes mellitus type 2 in obese Is this a current diagnosis for this admission?: Yes (4) Essential hypertension Is this a current diagnosis for this admission?: Yes - Time Time Spent with patient: Continue present management Continue Zithromax and ceftriaxone Continue nebs Will add Mucomyst to loosen the secretions Continue flutter valve and incentive spirometry PT evaluation on Sunday She likely will be discharged in 48-72 hours when improved Blood sugars are quite high We will initiate Lantus insulin 10 units subcu every 12 Time Spent with patient: 25-34 minutes
[2017-08-05] MEDS ORDERED: NORMAL SALINE 1000 ML 1,000 ML IV PRN (17:40)
[2017-08-05] MEDS ORDERED: ACETYLCYSTEINE 10% NEB 400 MG/4 ML VIAL NEB ONE ×2 (18:00→18:30)
[2017-08-05] MEDS ORDERED: IPRATROPIUM/ALBUTEROL 0.5-2.5 MG/3 ML AMPUL NEB PRN (20:50)
[2017-08-05] MEDS ORDERED: ONDANSETRON HCL INJ/PF 4 MG/2 ML SDV IV PRN (22:12)
[2017-08-05] MEDS: INSULIN GLARGINE,HUM.REC.ANLOG 1,000 UNIT/10 ML UNIT SUBCUT SCH (22:33)
[2017-08-05] MEDS: DULOXETINE HCL 30 MG CAPSULE.DR PO SCH (22:34)
[2017-08-05] MEDS ORDERED: PHARMACY COMMUNICATION ORDER MC NR (23:45)
[2017-08-06] MEDS: GABAPENTIN 300 MG CAPSULE PO SCH (00:07)
--- NOTE | 2017-08-06 01:23 | RADIOLOGY REPORT (SQ) ---
EXAM DESCRIPTION: ABDOMEN 2 VIEWS CLINICAL HISTORY: 57 years, Female, nausea vomiting c abd distension COMPARISON: None. NUMBER OF VIEWS: 5 LIMITATIONS: None. FINDINGS: Moderate nonspecific gaseous bowel distention. Moderate right colonic stool retention. Right upper abdominal clips. Small bibasilar opacities consistent with CT report, 2.17.18. IMPRESSION: 1. No acute intra-abdominal findings. 2. Small bibasilar pneumonia/atelectasis.
[2017-08-06] MEDS ORDERED: LACTULOSE SYRUP 20 GM/30 ML UDCUP NG ONE (02:00)
[2017-08-06] MEDS ORDERED: NA PHOS,M-B/NA PHOS,DI-BA (ADULT) 133 ML ENEMA PR ONE (02:00)
[2017-08-06] MEDS: IPRATROPIUM/ALBUTEROL 0.5-2.5 MG/3 ML AMPUL NEB SCH ×3 (02:17→14:20)
[2017-08-06] MEDS: ACETYLCYSTEINE 10% NEB 400 MG/4 ML VIAL NEB SCH ×3 (02:25→14:20)
[2017-08-06] MEDS ORDERED: ACETAMINOPHEN 325 MG TABLET NG PRN (02:30)
[2017-08-06] MEDS ORDERED: OXYCODONE HCL IR 5 MG TABLET NG PRN (02:30)
[2017-08-06] MEDS ORDERED: GUAIFENESIN/CODEINE PHOS 100-10 MG/ 5 ML UDC NG PRN (02:30)
[2017-08-06] MEDS ORDERED: DEXTROSE 40% GEL 15 GM TUBE NG PRN ×2 (02:30)
--- NOTE | 2017-08-06 02:38 | RADIOLOGY REPORT (SQ) ---
EXAM DESCRIPTION: KUB/ABDOMEN (SINGLE VIEW) CLINICAL HISTORY: 57 years, Female, Check Placement of NG Tube COMPARISON: None. NUMBER OF VIEWS: 1 TECHNIQUE/limitation: Targeted upper abdominal view of the NG tube. FINDINGS: Enteric tube tip at the left upper abdominal quadrant stomach; proximal port is just above the expected gastroesophageal junction/diaphragms. Right upper abdominal clips. IMPRESSION: Enteric tube. Moderate gaseous bowel distention.
[2017-08-06] MEDS ORDERED: GABAPENTIN 300 MG CAPSULE NG SCH (06:00)
[2017-08-06] MEDS: METHYLPREDNISOLONE INJ 40 MG/1 ML SDV IV SCH ×2 (06:16→15:25)
[2017-08-06] MEDS: CEFTRIAXONE SODIUM 1,000 MG in NORMAL SALINE 100 ML IV SCH (06:16)
[2017-08-06] MEDS ORDERED: BISACODYL 10 MG SUPP.RECT PR ONE (08:58)
[2017-08-06] MEDS: GUAIFENESIN 600 MG TABLET.SA PO SCH (09:28)
[2017-08-06] MEDS: CYANOCOBALAMIN (VITAMIN B-12) 1,000 MCG TABLET PO SCH (09:29)
[2017-08-06] MEDS: METFORMIN HCL 500 MG TABLET PO SCH (09:29)
[2017-08-06] MEDS: AZITHROMYCIN 500 MG in DEXTROSE 5%-WATER 250 ML IV SCH (09:30)
[2017-08-06] MEDS ORDERED: ATORVASTATIN CALCIUM 40 MG TABLET NG SCH (10:00)
[2017-08-06] MEDS ORDERED: METOPROLOL TARTRATE 50 MG TABLET NG SCH (10:00)
[2017-08-06] MEDS ORDERED: MULTIVIT-STRESS FORMULA/ZINC TABLET NG SCH (10:00)
[2017-08-06] MEDS ORDERED: ASPIRIN 81 MG TABLET, CHEWABLE NG SCH (10:00)
[2017-08-06] MEDS ORDERED: EZETIMIBE 10 MG TABLET NG SCH (10:00)
[2017-08-06] MEDS ORDERED: VALSARTAN 40 MG TABLET NG SCH (10:00)
[2017-08-06] MEDS ORDERED: CELECOXIB 200 MG CAPSULE NG SCH (10:00)
[2017-08-06] MEDS ORDERED: DEXTROSE 40% GEL 15 GM TUBE PO PRN ×2 (11:00)
[2017-08-06] MEDS ORDERED: ACETAMINOPHEN 325 MG TABLET PO PRN (11:30)
[2017-08-06] MEDS ORDERED: GUAIFENESIN/CODEINE PHOS 100-10 MG/ 5 ML UDC PO PRN (11:30)
[2017-08-06] MEDS ORDERED: OXYCODONE HCL IR 5 MG TABLET PO PRN (11:30)
[2017-08-06] MEDS ORDERED: GABAPENTIN 300 MG CAPSULE PO SCH (12:00)
[2017-08-06] MEDS: ENOXAPARIN SODIUM INJ 40 MG/0.4 ML DISP.SYRIN SUBCUT SCH (13:37)
--- NOTE | 2017-08-06 14:24 | PDOC DISCHARGE SUMMARY ---
General - Admit/Disc Date/PCP Admission Date/Primary Care Provider: 08/04/17 08:30 CLAUS GRIFFIN MD Discharge Date: 08/06/17 - Discharge Diagnosis (1) Acute respiratory failure with hypoxemia Is this a current diagnosis for this admission?: Yes Summary: Bilateral lower lobes pneumonia, sputum grew staph aureus sensitive to current abx (2) Community acquired pneumonia Is this a current diagnosis for this admission?: Yes Summary: As above (3) Essential hypertension Is this a current diagnosis for this admission?: Yes Summary: Normotensive. Continue current meds (4) Diabetes mellitus type 2 in obese Is this a current diagnosis for this admission?: Yes Summary: Continue home medications (5) Morbid obesity Is this a current diagnosis for this admission?: Yes Summary: Counseled - Additional Information Discharge Activity: Activity As Tolerated, Balance Activity w/Rest Prescriptions: Azithromycin [Zithromax 250 mg Tablet] 250 mg PO DAILY #5 tablet Prednisone 40 mg PO DAILY #6 tablet Home Medications: Aspirin [Ecotrin 81 mg EC Tablet] 81 mg PO DAILY 08/04/17 Atorvastatin Calcium [Lipitor 40 mg Tablet] 40 mg PO DAILY 08/04/17 Celecoxib [Celebrex 200 mg Capsule] 200 mg PO DAILY 08/04/17 Cyanocobalamin (Vitamin B-12) [Vitamin B-12] 1,000 mcg PO DAILY 08/04/17 Cyclobenzaprine HCl [Flexeril 10 mg Tablet] 10 mg PO TIDP PRN 08/04/17 Duloxetine HCl [Cymbalta] 60 mg PO QHS 08/04/17 Ezetimibe [Zetia 10 mg Tablet] 10 mg PO DAILY 08/04/17 Gabapentin [Neurontin] 600 mg PO Q6 08/04/17 Metformin HCl [Metformin HCl ER] 2,000 mg PO DAILY 08/04/17 Metoprolol Tartrate [Lopressor 50 mg Tablet] 50 mg PO Q12 08/04/17 Oxycodone HCl/Acetaminophen [Oxycodon-Acetaminophen 7.5-325] 1 each PO QIDP PRN 08/04/17 Ubidecarenone [Co Q10] 100 mg PO DAILY 08/04/17 Valsartan [Diovan 40 mg Tablet] 20 mg PO DAILY 08/04/17 Vitamin B Complex [Super B Complex] 1 cap PO DAILY 08/04/17 Acetaminophen [Tylenol 325 mg Tablet] 650 mg PO Q4HP PRN tablet 08/06/17 Azithromycin [Zithromax 250 mg Tablet] 250 mg PO DAILY #5 tablet 08/06/17 Guaifenesin [Mucinex Sr 600 mg Tablet.sa] 600 mg PO Q12 tablet.sa 08/06/17 Prednisone 40 mg PO DAILY #6 tablet 08/06/17 History of Present Illness Patient complains of: Cough, fever and increasing shortness of breath History of Present Illness: MARINO SAMAYOA is a 57 year old [place] female that comes to the emergency department for chief complaint of congestion, cough, fever, and worsening difficulty breathing since yesterday. She reports multiple sick contacts at home. She has not had the influenza vaccine. She does not smoke, she denies history of asthma or COPD. She has had fevers up to 101.5 at home. She has been taking Tylenol and ahfg-ggc-[id number] Mucinex without improvement of her symptoms. She began wheezing yesterday afternoon and it became more progressive as the day went on. Her dyspnea is what prompted her trip to the emergency room. She denies chest pain, nausea or vomiting, abdominal pain. Past medical history of type 2 diabetes, hypertension, hyperlipidemia, and chronic back pain Hospital Course Hospital Course: She was admitted to telemetry unit on IV broad spectrum antibiotics, nebulizers and IV steroids. She gradually improved over the next 48 hrs. Her cough has improved as well. She is no longer requiring oxygen. She had some nausea, and vomiting overnight. Web Developer Programmer placed an NG tube which we removed this morning. KUB showed some stool in rectum but no ileus. She was given a suppository and had a large bowel movement. She has had no further nausea and has been able to eat Physical Exam Vital Signs: Temp Pulse Resp BP Pulse Ox 98.3 F 70 17 124/81 96 08/06/17 11:21 08/06/17 11:21 08/06/17 11:21 08/06/17 11:21 08/06/17 11:21 Pulse Oximeter Continuous Start: 08/04/17 07: 52 Freq: RTQ4 Status: Complete Document 08/06/17 08:47 LDA (Rec: 08/06/17 10:35 LDA [email or web address]) Pulse Oximetry Assessment Oxygen Saturation (92-100) 97 Oxygen Flow Rate (L/min) 3 Oxygen Delivery Method Nasal Cannula Fraction of Inspired Oxygen (FIO2) 32 Equipment Usage Equipment in Use Continuous SpO2 Machine # [id number] Intake & Output 08/05/17 08/06/17 08/07/17 06:59 06:59 06:59 Intake Total 2536 Output Total 1 1351 700 Balance -1 0985 -700 Weight 89 kg 89 kg General appearance: PRESENT: no acute distress, morbidly obese, well-developed, well-nourished Head exam: PRESENT: atraumatic, normocephalic Eye exam: PRESENT: conjunctiva pink, EOMI, PERRLA. ABSENT: scleral icterus Ear exam: PRESENT: normal external ear exam Mouth exam: PRESENT: moist, tongue midline Neck exam: ABSENT: carotid bruit, JVD, lymphadenopathy, thyromegaly Respiratory exam: PRESENT: decreased breath sounds, symmetrical, unlabored Cardiovascular exam: PRESENT: RRR. ABSENT: diastolic murmur, rubs, systolic murmur Pulses: PRESENT: normal dorsalis pedis pul Vascular exam: PRESENT: normal capillary refill GI/Abdominal exam: PRESENT: normal bowel sounds, soft. ABSENT: distended, guarding, mass, organolmegaly, rebound, tenderness Rectal exam: PRESENT: deferred Extremities exam: PRESENT: full ROM. ABSENT: calf tenderness, clubbing, pedal edema Neurological exam: PRESENT: alert, awake, oriented to person, oriented to place , oriented to time, oriented to situation, CN II-XII grossly intact. ABSENT: motor sensory deficit Psychiatric exam: PRESENT: appropriate affect, normal mood. ABSENT: homicidal ideation, suicidal ideation Skin exam: PRESENT: dry, intact, warm. ABSENT: cyanosis, rash Results Laboratory Results: 08/04/17 13:09 Sputum Gram Stain - Final 08/04/17 13:09 Sputum Sputum Culture - Final Staphylococcus Aureus Normal Evette Absent Impressions: Chest X-Ray 08/04/17 02:53 IMPRESSION: No acute cardiopulmonary findings. Chest/Abdomen CTA 08/04/17 07:38 IMPRESSION: BILATERAL LOWER LOBE PNEUMONIA. RECOMMEND FOLLOWUP RADIOGRAPHS 4 TO 6 WEEKS TO ENSURE RESOLUTION. OTHERWISE UNREMARKABLE CTA CHEST WITHOUT PULMONARY EMBOLI. Abdomen X-Ray 08/05/17 22:11 IMPRESSION: 1. No acute intra-abdominal findings. 2. Small bibasilar pneumonia/atelectasis. KUB X-Ray 08/05/17 23:34 IMPRESSION: Enteric tube. Moderate gaseous bowel distention. Qualifiers - * PATEINT BEING DISCHARGED WITH ANY OF THE FOLLOWING DIAGNOSIS?: No
[2017-08-06 14:43] VITALS: BP 108/63
[2017-08-06] MEDS: INSULIN GLARGINE,HUM.REC.ANLOG 1,000 UNIT/10 ML UNIT SUBCUT SCH (15:20)
[2017-08-06] MEDS ORDERED: METOPROLOL TARTRATE 50 MG TABLET PO SCH (22:00)
[2017-08-07] MEDS ORDERED: VALSARTAN 40 MG TABLET PO SCH (10:00)
[2017-08-07] MEDS ORDERED: ATORVASTATIN CALCIUM 40 MG TABLET PO SCH (10:00)
[2017-08-07] MEDS ORDERED: ASPIRIN 81 MG TABLET, CHEWABLE PO SCH (10:00)
[2017-08-07] MEDS ORDERED: MULTIVIT-STRESS FORMULA/ZINC TABLET PO SCH (10:00)
[2017-08-07] MEDS ORDERED: CELECOXIB 200 MG CAPSULE PO SCH (10:00)
[2017-08-07] MEDS ORDERED: EZETIMIBE 10 MG TABLET PO SCH (10:00)
== END 2017-08-06 16:35 | disposition home or self-care (01) | DRG 193 ==
LOC: ER 01:44 → EH 08:30 → 5 08-05 03:30
PROVIDERS: ADMIT Internal Medicine; ATTEND Internal Medicine
PROC: 3E0234Z Introduction of Serum, Toxoid and Vaccine into Muscle, Percutaneous Approach (ICD-10-PCS; principal; 2017-08-06)
DX: J18.9 Pneumonia, unspecified organism (principal); J96.01 Acute respiratory failure with hypoxia; E11.9 Type 2 diabetes mellitus without complications; I10 Essential (primary) hypertension; E78.5 Hyperlipidemia, unspecified; K21.9 Gastro-esophageal reflux disease without esophagitis; B95.61 Methicillin susceptible Staphylococcus aureus infection as the cause of diseases classified elsewhere; M54.9 Dorsalgia, unspecified; E66.01 Morbid (severe) obesity due to excess calories; Z68.37 Body mass index [BMI] 37.0-37.9, adult; Z79.84 Long term (current) use of oral hypoglycemic drugs; Z79.82 Long term (current) use of aspirin; Z79.52 Long term (current) use of systemic steroids; Z79.899 Other long term (current) drug therapy; Z23 Encounter for immunization
CPT/HCPCS: 36415; 71045; 71275; 74018; 74019; 80053; 81001; 82550; 82803; 82962; 84484; 85025; 87040; 87070; 87077; 87186; 87205; 87804; 90686; 94640; 94667; 94762; 96365; 96375; 99285; J0456; J0696; J1650; J1815; J2405; J2920; J2930; J3475; J3490; J7030; J7060; J7512; J7620

== ENCOUNTER → 2017-09-24 | Outpatient (CLI) | payer OTHER ==
--- NOTE | 2017-09-24 21:02 | RADIOLOGY REPORT (SQ) ---
EXAM DESCRIPTION: U/S THYROID/SFT TISS HD NECK COMPLETED DATE/TIME: 09/24/2017 6:23 pm REASON FOR STUDY: OTHER SOMATOFORM DISORDERS COMPARISON: None. TECHNIQUE: Dynamic and static whitmore-scale images acquired of the thyroid gland. Selected additional c olor/power Doppler images recorded. All stored to PACs. LIMITATIONS: None. FINDINGS: RIGHT LOBE: 3.2 x 1.6 x 1.4 cm. Heterogeneous echo pattern, mildly nodular appearance wi thout dominant mass detected. LEFT LOBE: 3 x 1.3 x 1.3 cm. Heterogeneous echo pattern. Nodular appearance without dominant lesio n appreciated. ISTHMUS: 5 mm. No focal mass. OTHER: No other significant finding. IMPRESSION: Multinodular thyroid without dominant lesion appreciated. Reading location - IP/workstation name: [email or web address]
== END ==
LOC: RAD 17:23
PROVIDERS: ATTEND Family Medicine
DX: E04.2 Nontoxic multinodular goiter (principal); F45.8 Other somatoform disorders
CPT/HCPCS: 76536

== ENCOUNTER → 2017-09-25 | Outpatient (CLI) | payer OTHER ==
--- NOTE | 2017-09-25 15:47 | XCELERA REPORT ---
[address] [address] Lower Extremity Arterial Evaluation Name: MARINO SAMAYOA Age: 57 yrs Gender: Female : 1960 Patient Status: Outpatient Patient Location: Study Date: 09/25/2017 02:15 PM Procedure: A color flow and duplex scan of the lower extremity arteries was performed bilaterally with velocity and waveform anaylsis. Ankle brachial indicies performed. Reason For Study: CLAUDICATION Ordering Physician: CLAUS GRIFFIN Performed By: Carey Tristan Measurements and Calculations Right Left RANCH HAND LIVESTOCK PSV 121.5 117.3 cm/sec Prox PFA PSV 77.3 70.3 cm/sec Prox SFA PSV 123.8 122.2 cm/sec Mid SFA PSV -105.6 -96.5 cm/sec Dist SFA PSV -117.5 -109.2 cm/sec Prox Pop A PSV 85.0 111.4 cm/sec Dist MELBA PSV 80.9 86.0 cm/sec Dist HOUSE MOVER HELPER PSV 66.0 79.9 cm/sec Perry Pedis PSV 52.2 71.6 cm/sec Right Side Arterial Evaluation Normal velocity and triphasic waveforms noted from the Common Femoral artery to the infregeniculate vessels. 0 % stenosis . Ankle Brachial index is 1.2. Left Side Arterial Evaluation Normal velocity and triphasic waveforms noted from the Common Femoral artery to the infregeniculate vessels. 0 % stenosis . Ankle Brachial index is 1.2. Interpretation Summary No hemodynamically significant lesions in the bilateral lower extremities, on duplex imaging, at rest. : CLAUS GRIFFIN > Laurent Chiang
== END ==
LOC: SP 13:49
PROVIDERS: ATTEND Family Medicine
DX: I70.213 Atherosclerosis of native arteries of extremities with intermittent claudication, bilateral legs (principal)
CPT/HCPCS: 93925

== ENCOUNTER → 2017-10-03 | Outpatient (CLI) | payer OTHER ==
[2017-10-03 16:18] LABS: ABSOLUTE EOSINOPHILS # (AUTO) 0.1 10^3/uL (0.0-0.6); ABSOLUTE LYMPHOCYTES (AUTO) 2.4 10^3/uL (0.5-4.7); ABSOLUTE MONOCYTES (AUTO) 0.4 10^3/uL (0.1-1.4); ABSOLUTE NEUT (AUTO) 3.5 10^3/uL (1.7-8.2); BASOPHILS % (AUTO) 0.5 % (0-2); EOSINOPHILS % (AUTO) 1.7 % (0-6); HEMATOCRIT 39.9 % (36.0-47.0); LYMPHOCYTES % (AUTO) 37.2 % (13-45); MEAN CORPUSCULAR HEMOGLOBIN 27.7 pg (27.0-33.4); MEAN CORPUSCULAR HGB CONC 32.5 g/dL (32.0-36.0); MEAN CORPUSCULAR VOLUME 85 fl (80-97); MONOCYTES % (AUTO) 6.5 % (3-13); PLATELET COUNT 315 10^3/uL (150-450); RED BLOOD COUNT 4.69 10^6/uL (3.72-5.28); RED CELL DISTRIBUTION WIDTH 15.1 % (11.5-14.0); SEGMENTED NEUTROPHILS % (AUTO) 54.1 % (42-78); TOTAL CELLS COUNTED % (AUTO) 100 %; WHITE BLOOD COUNT 6.4 10^3/uL (4.0-10.5)
[2017-10-03 16:44] LABS: ALANINE AMINOTRANSFERASE 37 U/L (9-52); ALBUMIN 4.3 g/dL (3.5-5.0); ALKALINE PHOSPHATASE 86 U/L (38-126); ANION GAP 10 (5-19); ASPARTATE AMINO TRANSFERASE 22 U/L (14-36); BILIRUBIN,DIRECT 0.3 mg/dL (0.0-0.4); BILIRUBIN,TOTAL 0.4 mg/dL (0.2-1.3); BLOOD UREA NITROGEN 13 mg/dL (7-20); CALCIUM 11.1 mg/dL (8.4-10.2); CARBON DIOXIDE 32 mmol/L (22-30); CHLORIDE 102 mmol/L (98-107); GLUCOSE 89 mg/dL (75-110); POTASSIUM 4.5 mmol/L (3.6-5.0); SODIUM 143.9 mmol/L (137-145); TOTAL PROTEIN 6.3 g/dL (6.3-8.2)
[2017-10-03 16:58] LABS: ERYTHROCYTE SEDIMENTATION RATE 8 mm/hr (0-30)
[2017-10-03 17:37] LABS: C-REACTIVE PROTEIN < 5.0 mg/L (<10.0)
[2017-10-03 17:39] LABS: ALANINE AMINOTRANSFERASE 37 U/L (9-52); ALBUMIN 4.3 g/dL (3.5-5.0); ALKALINE PHOSPHATASE 86 U/L (38-126); ANION GAP 10 (5-19); ASPARTATE AMINO TRANSFERASE 22 U/L (14-36); BILIRUBIN,DIRECT 0.3 mg/dL (0.0-0.4); BILIRUBIN,TOTAL 0.4 mg/dL (0.2-1.3); BLOOD UREA NITROGEN 13 mg/dL (7-20); CALCIUM 11.1 mg/dL (8.4-10.2); CARBON DIOXIDE 32 mmol/L (22-30); CHLORIDE 102 mmol/L (98-107); GLUCOSE 89 mg/dL (75-110); POTASSIUM 4.5 mmol/L (3.6-5.0); SODIUM 143.9 mmol/L (137-145); TOTAL PROTEIN 6.3 g/dL (6.3-8.2)
[2017-10-05 16:12] LABS: CHOLESTEROL 120.63 mg/dL (0-200); TRIGLYCERIDES 57 mg/dL (<150)
[2017-10-05 16:22] LABS: DIRECT LDL 45 mg/dL (<100)
== END ==
LOC: OD 15:00
PROVIDERS: ATTEND Pain Medicine Interventional Pain Medicine
DX: M13.0 Polyarthritis, unspecified (principal); E78.00 Pure hypercholesterolemia, unspecified; I10 Essential (primary) hypertension; Z79.899 Other long term (current) drug therapy
CPT/HCPCS: 36415; 80048; 80053; 80061; 80076; 82306; 82607; 82652; 85025; 85652; 86038; 86140; 86430

== ENCOUNTER → 2017-10-10 | Outpatient (CLI) | payer OTHER ==
[2017-10-10 11:27] LABS: CHOLESTEROL 126.76 mg/dL (0-200); TRIGLYCERIDES 69 mg/dL (<150)
[2017-10-10 11:37] LABS: DIRECT LDL 57 mg/dL (<100)
== END ==
LOC: OD 09:55
PROVIDERS: ATTEND Internal Medicine Cardiovascular Disease
DX: E78.00 Pure hypercholesterolemia, unspecified (principal)
CPT/HCPCS: 36415; 80061

== ENCOUNTER → 2018-04-15 | Outpatient (CLI) | payer OTHER ==
[2018-04-15 14:58] LABS: ALANINE AMINOTRANSFERASE 42 U/L (9-52); ALBUMIN 4.4 g/dL (3.5-5.0); ALKALINE PHOSPHATASE 115 U/L (38-126); ANION GAP 9 (5-19); ASPARTATE AMINO TRANSFERASE 23 U/L (14-36); BILIRUBIN,DIRECT 0.2 mg/dL (0.0-0.4); BLOOD UREA NITROGEN 17 mg/dL (7-20); CALCIUM 11.8 mg/dL (8.4-10.2); CARBON DIOXIDE 32 mmol/L (22-30); CHLORIDE 100 mmol/L (98-107); CHOLESTEROL 129.68 mg/dL (0-200); GLUCOSE 115 mg/dL (75-110); POTASSIUM 4.7 mmol/L (3.6-5.0); SODIUM 140.8 mmol/L (137-145); TRIGLYCERIDES 67 mg/dL (<150)
[2018-04-15 15:10] LABS: DIRECT LDL 80 mg/dL (<100)
== END ==
LOC: OD 14:08
PROVIDERS: ATTEND Internal Medicine Cardiovascular Disease
DX: E78.00 Pure hypercholesterolemia, unspecified (principal); I10 Essential (primary) hypertension; Z79.899 Other long term (current) drug therapy
CPT/HCPCS: 36415; 80048; 80061; 80076

== ENCOUNTER → 2018-07-27 | Outpatient (CLI) | payer OTHER ==
[2018-07-27 15:34] LABS: ALANINE AMINOTRANSFERASE 32 U/L (9-52); ALBUMIN 4.3 g/dL (3.5-5.0); ALKALINE PHOSPHATASE 100 U/L (38-126); ASPARTATE AMINO TRANSFERASE 31 U/L (14-36); BILIRUBIN,DIRECT 0.2 mg/dL (0.0-0.4); BILIRUBIN,TOTAL 0.7 mg/dL (0.2-1.3); CHOLESTEROL 84.63 mg/dL (0-200); TOTAL PROTEIN 6.3 g/dL (6.3-8.2); TRIGLYCERIDES 78 mg/dL (<150)
[2018-07-27 15:45] LABS: DIRECT LDL 51 mg/dL (<100)
== END ==
LOC: LAB 14:51
PROVIDERS: ATTEND Internal Medicine Cardiovascular Disease
DX: E78.00 Pure hypercholesterolemia, unspecified (principal); Z79.899 Other long term (current) drug therapy
CPT/HCPCS: 36415; 80061; 80076

== ENCOUNTER → 2019-01-18 | Outpatient (CLI) | payer OTHER ==
[2019-01-18 19:00] LABS: ALBUMIN 4.3 g/dL (3.5-5.0); ALKALINE PHOSPHATASE 106 U/L (38-126); ANION GAP 8 (5-19); ASPARTATE AMINO TRANSFERASE 46 U/L (14-36); BILIRUBIN,DIRECT 0.3 mg/dL (0.0-0.4); BILIRUBIN,TOTAL 0.5 mg/dL (0.2-1.3); BLOOD UREA NITROGEN 16 mg/dL (7-20); CALCIUM 10.7 mg/dL (8.4-10.2); CARBON DIOXIDE 30 mmol/L (22-30); CHLORIDE 102 mmol/L (98-107); GLUCOSE 132 mg/dL (75-110); TOTAL PROTEIN 6.6 g/dL (6.3-8.2)
== END ==
LOC: LAB 18:15
PROVIDERS: ATTEND Internal Medicine Cardiovascular Disease
DX: E78.00 Pure hypercholesterolemia, unspecified (principal); I10 Essential (primary) hypertension; Z79.899 Other long term (current) drug therapy
CPT/HCPCS: 36415; 80048; 80076

== ENCOUNTER → 2019-03-21 | Outpatient (CLI) | payer OTHER ==
[2019-03-21 12:01] LABS: ABSOLUTE EOSINOPHILS # (AUTO) 0.2 10^3/uL (0.0-0.6); ABSOLUTE LYMPHOCYTES (AUTO) 2.1 10^3/uL (0.5-4.7); ABSOLUTE MONOCYTES (AUTO) 0.2 10^3/uL (0.1-1.4); ABSOLUTE NEUT (AUTO) 1.7 10^3/uL (1.7-8.2); BASOPHILS % (AUTO) 1.1 % (0-2); EOSINOPHILS % (AUTO) 4.3 % (0-6); HEMATOCRIT 36.9 % (36.0-47.0); HEMOGLOBIN 11.8 g/dL (12.0-15.5); LYMPHOCYTES % (AUTO) 48.7 % (13-45); MEAN CORPUSCULAR HEMOGLOBIN 26.3 pg (27.0-33.4); MEAN CORPUSCULAR HGB CONC 32.1 g/dL (32.0-36.0); MEAN CORPUSCULAR VOLUME 82 fl (80-97); MONOCYTES % (AUTO) 5.9 % (3-13); PLATELET COUNT 237 10^3/uL (150-450); RED BLOOD COUNT 4.51 10^6/uL (3.72-5.28); RED CELL DISTRIBUTION WIDTH 15.2 % (11.5-14.0); TOTAL CELLS COUNTED % (AUTO) 100 %; WHITE BLOOD COUNT 4.2 10^3/uL (4.0-10.5)
[2019-03-21 12:26] LABS: IRON(TIBC) 48.2 ug/dL (37-170)
[2019-03-21 12:28] LABS: ALKALINE PHOSPHATASE 100 U/L (38-126); ASPARTATE AMINO TRANSFERASE 28 U/L (14-36); BILIRUBIN,DIRECT 0.1 mg/dL (0.0-0.4); BILIRUBIN,TOTAL 0.6 mg/dL (0.2-1.3); CHOLESTEROL 100.46 mg/dL (0-200); TOTAL PROTEIN 6.3 g/dL (6.3-8.2); TRIGLYCERIDES 63 mg/dL (<150)
[2019-03-21 12:40] LABS: DIRECT LDL 59 mg/dL (<100)
[2019-03-21 15:31] LABS: ANION GAP 7 (5-19); BLOOD UREA NITROGEN 13 mg/dL (7-20); CALCIUM 10.7 mg/dL (8.4-10.2); CARBON DIOXIDE 31 mmol/L (22-30); CHLORIDE 101 mmol/L (98-107); GLUCOSE 82 mg/dL (75-110); POTASSIUM 4.6 mmol/L (3.6-5.0)
== END ==
LOC: OD 10:40
PROVIDERS: ATTEND Family Medicine
DX: I10 Essential (primary) hypertension (principal); E11.9 Type 2 diabetes mellitus without complications; E78.00 Pure hypercholesterolemia, unspecified; D50.9 Iron deficiency anemia, unspecified; E53.9 Vitamin B deficiency, unspecified; R94.5 Abnormal results of liver function studies; Z79.899 Other long term (current) drug therapy
CPT/HCPCS: 36415; 80048; 80061; 80076; 82607; 83036; 83525; 83540; 83550; 85025

== ENCOUNTER → 2019-09-22 | Outpatient (CLI) | payer OTHER ==
[2019-09-22 15:08] LABS: ALBUMIN 4.3 g/dL (3.5-5.0); ALKALINE PHOSPHATASE 126 U/L (38-126); ANION GAP 6 (5-19); ASPARTATE AMINO TRANSFERASE 27 U/L (14-36); BILIRUBIN,TOTAL 0.4 mg/dL (0.2-1.3); BLOOD UREA NITROGEN 17 mg/dL (7-20); CALCIUM 10.4 mg/dL (8.4-10.2); CARBON DIOXIDE 31 mmol/L (22-30); CHLORIDE 102 mmol/L (98-107); GLUCOSE 84 mg/dL (75-110); POTASSIUM 4.7 mmol/L (3.6-5.0); TOTAL PROTEIN 6.8 g/dL (6.3-8.2); TRIGLYCERIDES 58 mg/dL (<150)
[2019-09-22 15:19] LABS: DIRECT LDL 50 mg/dL (<100)
== END ==
LOC: OD 13:23
PROVIDERS: ATTEND Physician Assistant
DX: E78.00 Pure hypercholesterolemia, unspecified (principal); I10 Essential (primary) hypertension; Z79.899 Other long term (current) drug therapy
CPT/HCPCS: 36415; 80048; 80061; 80076

== ENCOUNTER → 2019-12-25 | Outpatient (CLI) | payer OTHER ==
[2019-12-25 11:36] LABS: ALBUMIN 4.3 g/dL (3.5-5.0); ALKALINE PHOSPHATASE 117 U/L (38-126); ANION GAP 6 (5-19); ASPARTATE AMINO TRANSFERASE 70 U/L (14-36); BILIRUBIN,TOTAL 0.7 mg/dL (0.2-1.3); BLOOD UREA NITROGEN 17 mg/dL (7-20); CALCIUM 10.4 mg/dL (8.4-10.2); CARBON DIOXIDE 31 mmol/L (22-30); CHLORIDE 102 mmol/L (98-107); GLUCOSE 100 mg/dL (75-110); POTASSIUM 4.4 mmol/L (3.6-5.0); TOTAL PROTEIN 6.6 g/dL (6.3-8.2); TRIGLYCERIDES 91 mg/dL (<150)
[2019-12-25 11:47] LABS: DIRECT LDL 56 mg/dL (<100)
== END ==
LOC: OD 10:41
PROVIDERS: ATTEND Physician Assistant
DX: E78.00 Pure hypercholesterolemia, unspecified (principal); I10 Essential (primary) hypertension; E55.9 Vitamin D deficiency, unspecified; Z79.899 Other long term (current) drug therapy
CPT/HCPCS: 36415; 80048; 80061; 80076; 82306

== ENCOUNTER → 2020-02-26 | Outpatient (CLI) | payer OTHER ==
[2020-02-26 15:11] LABS: ABSOLUTE EOSINOPHILS # (AUTO) 0.1 10^3/uL (0.0-0.6); ABSOLUTE LYMPHOCYTES (AUTO) 1.7 10^3/uL (0.5-4.7); ABSOLUTE MONOCYTES (AUTO) 0.3 10^3/uL (0.1-1.4); ABSOLUTE NEUT (AUTO) 3.6 10^3/uL (1.7-8.2); BASOPHILS % (AUTO) 0.5 % (0-2); HEMATOCRIT 37.8 % (36.0-47.0); HEMOGLOBIN 12.4 g/dL (12.0-15.5); LYMPHOCYTES % (AUTO) 29.6 % (13-45); MEAN CORPUSCULAR HEMOGLOBIN 26.9 pg (27.0-33.4); MEAN CORPUSCULAR HGB CONC 32.8 g/dL (32.0-36.0); MEAN CORPUSCULAR VOLUME 82 fl (80-97); MONOCYTES % (AUTO) 4.8 % (3-13); PLATELET COUNT 344 10^3/uL (150-450); RED BLOOD COUNT 4.62 10^6/uL (3.72-5.28); RED CELL DISTRIBUTION WIDTH 13.9 % (11.5-14.0); SEGMENTED NEUTROPHILS % (AUTO) 63.1 % (42-78); TOTAL CELLS COUNTED % (AUTO) 100 %; WHITE BLOOD COUNT 5.7 10^3/uL (4.0-10.5)
[2020-02-26 15:34] LABS: ALBUMIN 4.2 g/dL (3.5-5.0); ALKALINE PHOSPHATASE 181 U/L (38-126); ANION GAP 10 (5-19); ASPARTATE AMINO TRANSFERASE 41 U/L (14-36); BILIRUBIN,DIRECT 0.4 mg/dL (0.0-0.4); BILIRUBIN,TOTAL 0.7 mg/dL (0.2-1.3); BLOOD UREA NITROGEN 12 mg/dL (7-20); CALCIUM 10.8 mg/dL (8.4-10.2); CARBON DIOXIDE 29 mmol/L (22-30); CHLORIDE 101 mmol/L (98-107); GLUCOSE 202 mg/dL (75-110); IRON(TIBC) 39.9 ug/dL (37-170); POTASSIUM 4.9 mmol/L (3.6-5.0); TOTAL PROTEIN 6.5 g/dL (6.3-8.2)
--- NOTE | 2020-02-26 16:21 | RADIOLOGY REPORT (SQ) ---
EXAM DESCRIPTION: HIPS BILATERAL IMAGES COMPLETED DATE/TIME: 02/26/2020 3:28 pm REASON FOR STUDY: PAIN IN UNSPECIFIED HIP E53.9 VITAMIN B DEFICIENCY, UNSPECIFIED D50.9 IRON DEFIC IENCY ANEMIA, UNSPECIFIED Z79.899 OTHER [facility] (CURRENT) DRUG THERAPY COMPARISON: None. NUMBER OF VIEWS: Two views TECHNIQUE: AP pelvis and additional frog-leg view of both hips. LIMITATIONS: None. FINDINGS: No evidence of impingement. Mild joint space narrowing in both hips. Subchondral cyst le ft acetabulum. SI joints are normal. IMPRESSION: Mild osteoarthritis. TECHNICAL DOCUMENTATION: JOB ID: [id number] 2010 [employer]- All Rights Reserved Reading location - IP/workstation name: [email or web address]
== END ==
LOC: OD 14:36
PROVIDERS: ATTEND Family Medicine
DX: D50.9 Iron deficiency anemia, unspecified (principal); E53.9 Vitamin B deficiency, unspecified; E83.52 Hypercalcemia; M25.559 Pain in unspecified hip; Z79.899 Other long term (current) drug therapy
CPT/HCPCS: 36415; 73522; 80053; 82607; 82728; 82784; 83540; 83550; 83615; 83970; 84156; 84165; 84166; 85025; 86335

== ENCOUNTER → 2020-03-29 | Outpatient (CLI) | payer OTHER ==
[2020-03-29 17:06] LABS: ALBUMIN 4.1 g/dL (3.5-5.0); ALKALINE PHOSPHATASE 187 U/L (38-126); ANION GAP 10 (5-19); ASPARTATE AMINO TRANSFERASE 45 U/L (14-36); BILIRUBIN,DIRECT 0.3 mg/dL (0.0-0.4); BILIRUBIN,TOTAL 0.7 mg/dL (0.2-1.3); BLOOD UREA NITROGEN 15 mg/dL (7-20); CARBON DIOXIDE 28 mmol/L (22-30); CHLORIDE 102 mmol/L (98-107); CHOLESTEROL 112.08 mg/dL (0-200); GLUCOSE 82 mg/dL (75-110); TOTAL PROTEIN 6.6 g/dL (6.3-8.2); TRIGLYCERIDES 65 mg/dL (<150)
[2020-03-29 17:17] LABS: DIRECT LDL 59 mg/dL (<100)
== END ==
LOC: OD 16:10
PROVIDERS: ATTEND Physician Assistant
DX: E78.00 Pure hypercholesterolemia, unspecified (principal); I10 Essential (primary) hypertension; R94.5 Abnormal results of liver function studies; Z79.899 Other long term (current) drug therapy
CPT/HCPCS: 36415; 80048; 80061; 80076

== ENCOUNTER → 2020-07-08 | Outpatient (CLI) | payer OTHER ==
[2020-07-08 16:33] LABS: ALBUMIN 4.1 g/dL (3.5-5.0); ALKALINE PHOSPHATASE 121 U/L (38-126); ANION GAP 6 (5-19); ASPARTATE AMINO TRANSFERASE 37 U/L (14-36); BILIRUBIN,DIRECT 0.2 mg/dL (0.0-0.4); BILIRUBIN,TOTAL 0.7 mg/dL (0.2-1.3); BLOOD UREA NITROGEN 14 mg/dL (7-20); CALCIUM 10.9 mg/dL (8.4-10.2); CARBON DIOXIDE 29 mmol/L (22-30); CHLORIDE 104 mmol/L (98-107); CHOLESTEROL 99.04 mg/dL (0-200); GLUCOSE 101 mg/dL (75-110); POTASSIUM 4.5 mmol/L (3.6-5.0); TOTAL PROTEIN 6.8 g/dL (6.3-8.2); TRIGLYCERIDES 64 mg/dL (<150)
[2020-07-08 16:45] LABS: DIRECT LDL 50 mg/dL (<100)
== END ==
LOC: OD 14:22
PROVIDERS: ATTEND Internal Medicine Cardiovascular Disease
DX: E78.00 Pure hypercholesterolemia, unspecified (principal); I10 Essential (primary) hypertension; R94.5 Abnormal results of liver function studies; Z79.899 Other long term (current) drug therapy
CPT/HCPCS: 36415; 80048; 80061; 80076; 86038; 86235; 86256; 87340